=== PATIENT | female | born 2000 | race Two or more races ===

== ENCOUNTER 2024-11-09 05:58 | Day surgery (SDC) | payer OTHER ==
[~2024-11-09 05:58] MED LIST: BUPROPION XL450 MG; TRI-LO-SPRINTE1 EACH PO
[2024-11-09] MEDS ORDERED: POVIDONE-IODINE 118 ML BOTT TOP ONE (08:52)
[2024-11-09] MEDS ORDERED: SUGAMMADEX SODIUM 200 MG/2 ML VIAL IV ONE (10:50)
[2024-11-09] MEDS ORDERED: IBU800 MG PO (11:00)
[2024-11-09] MEDS ORDERED: NEURONTIN300 MG PO (11:00)
[2024-11-09] MEDS ORDERED: MORPHINE SULFATE 4 MG/ML VIAL IV ONE (12:30)
== END 2024-11-09 14:25 | disposition home or self-care (01) ==
LOC: CIR.AMB 05:58
PROVIDERS: ATTEND Obstetrics & Gynecology Gynecology
DX: D27.1 Benign neoplasm of left ovary (principal); R10.2 Pelvic and perineal pain